=== PATIENT | female | born 1980 | race Hispanic/Latino ===

== ENCOUNTER 2023-09-10 17:51 | Inpatient (IN) | payer OTHER ==
[~2023-09-10] VITALS: Ht 147.3 cm; Wt 74.3 kg
[2023-09-10] VITALS (20 sets, daily range): BP systolic 121–167; BP diastolic 64–114
--- NOTE | 2023-09-10 19:32 | NUR ---
PATIENT AMBULATORY TO ROOM 6, TRIAGE COMPLETED AT BEDSIDE.
[2023-09-10] MEDS ORDERED: ASPIRIN 81 MG/TAB PO ONE (19:55)
[2023-09-10] MEDS ORDERED: AMLODIPINE BESYL5 MG PO (20:00)
[2023-09-10] MEDS ORDERED: amLODIPine BESYLATE 5 MG/TAB PO ONE (20:00)
[2023-09-10 20:08] LABS: BASO% 0.5 % (0-3); EOS% 1.4 % (0-8); IMMATURE GRANULOCYTES 0.3 % (0.0-5.0); LYMPH% 31.1 % (15-41); MEAN CELL VOLUME 49.1 fL CALC (80.0-100.0); MEAN CORPUSCULAR HGB 13.3 pG CALC (26.0-32.0); MEAN CORPUSCULAR HGB CONC 27.1 g/dL CAL (32.0-36.0); NEUT# 3.72 thou/uL (2.00-7.15); NEUT% 57.7 % (42-76); RED BLOOD COUNT 3.38 mill/uL (4.20-5.60); RED CELL DISTRI WIDTH 23.3 % (11.5-15.5)
[2023-09-10 20:12] LABS: HEMATOCRIT 16.6 % (37.0-47.0); HEMOGLOBIN 4.5 g/dl (12.0-16.0)
[2023-09-10] MEDS ORDERED: SODIUM CHLORIDE 0.9% 500 ML IV ONE (20:25)
--- NOTE | 2023-09-10 20:25 | NUR ---
CRITICAL HEMOGLOBIN REPORTED TO DR VO. HEMOGLOBHIN 4.5, HEMATOCRIT 16.6
[2023-09-10 20:34] LABS: ALBUMIN 4.3 g/dL (3.2-5.0); ALKALINE PHOSPHATASE 52 u/l (38-126); ANION GAP 11 (6-22 (CALC)); BILIRUBIN, TOTAL 0.2 mg/dL (0.02-1.3); BUN 14 mg/dL (7-17); BUN/CREATININE RATIO 17 (12-20 (CALC)); CARBON DIOXIDE 24 mmol/l (22-30); CHLORIDE 108 mmol/l (95-108); CREATININE 0.8 mg/dL (0.5-1.0); GFR FOR AFR.AMER. > 60 ML/MIN (>=60 (CALC)); GFR OTHER RACES > 60 ML/MIN (>=60 (CALC)); POTASSIUM 3.8 mmol/l (3.5-5.1); SGOT/AST 19 u/l (14-36); SODIUM 139 mmol/l (137-146); TOTAL PROTEIN 7.6 g/dL (6.3-8.2)
[2023-09-10] MEDS ORDERED: PROTONIX40 M2 PO (20:52)
[2023-09-10] MEDS ORDERED: ACETAMINOPHEN 325 MG/TAB PO PRN (20:55)
[2023-09-10] MEDS ORDERED: MAGNESIUM HYDROXIDE 30 ML UDC PO PRN (20:55)
[2023-09-10 21:20] LABS: URINE BILIRUBIN - DIPSTICK Negative (NEGATIVE); URINE BLOOD DIPSTICK Negative (NEGATIVE); URINE CLARITY Clear; URINE COLOR Yellow; URINE GLUCOSE - DIPSTICK Negative (NEGATIVE); URINE KETONE Negative (NEGATIVE); URINE LEUK ESTERASE Negative (Negative); URINE NITRITE - DIPSTICK Negative (Negative); URINE PROTEIN - DIPSTICK Negative (NEG-TRACE)
--- NOTE | 2023-09-10 21:57 | NUR ---
BLOOD VERIFIED WITH Justice BECKHAM RN
--- NOTE | 2023-09-10 23:45 | NUR ---
BLOOD COMPLETED AT THIS TIME.
[2023-09-11] VITALS (55 sets, daily range): BP systolic 102–162; BP diastolic 54–101
--- NOTE | 2023-09-11 | NUR ---
PATIENT RESTING IN BED, NO APPARENT DISTRES NOTED. CALL LIGHT WITHIN REACH.
[2023-09-11] MEDS ORDERED: IBUPROFEN 600 MG/TAB PO ONE (02:00)
--- NOTE | 2023-09-11 02:00 | NUR ---
PATIENT RESTING IN BED, NO APPARENT DISTRESS NOTED. CALL LIGHT AND BEDSIDE TABLE WITHIN REACH.
[2023-09-11 02:25] LABS: HEMATOCRIT 19.5 % (37.0-47.0); HEMOGLOBIN 5.4 g/dl (12.0-16.0)
--- NOTE | 2023-09-11 02:28 | NUR ---
CRITICAL HEMOGLOBIN AND MYOGLOBIN CALLED TO DR CONTRERAS. PER DR CONTRERAS ADDITIONAL 2 UNITS OF BLOOD TO BE ADDED FOR A TOTAL OF 3 UNITS.
[2023-09-11] MEDS ORDERED: SODIUM CHLORIDE 0.9% 500 ML IV ONE ×2 (03:38→06:31)
--- NOTE | 2023-09-11 03:54 | NUR ---
BLOOD UNIT VERIFIED WITH Dennis MORGAN RN.
--- NOTE | 2023-09-11 06:27 | NUR ---
PATIENT MOVED TO ROOM 14, PATIENT SWITCHED FROM STRETCHER TO BED.
--- NOTE | 2023-09-11 06:43 | NUR ---
BLOOD UNIT VERIFIED WITH Dennis MORGAN RN.
--- NOTE | 2023-09-11 07:15 | NUR ---
REPORT GIVEN TO Brendan JERRY LPN. NOTIFIED OF NEST VSS DUE AT [id number]
--- NOTE | 2023-09-11 08:20 | NUR ---
PT ARRIVED FROM ER VIA BED WITH BLOOD STILL TRANSFUSING, IV SITE IS FREE FROM REDNESS OR EDEMA. NOTED. HR IS REG,PULSES ARE STRONG X4,ABD IS SOFT WITH ACTIVE BS. BREATH SOUNDS ARE CLEAR BILATERALLY. HAD ANTONELLA VELAZ[employer] STUDENT TRANSLATE IN [place].
--- NOTE | 2023-09-11 10:00 | NUR ---
PT HAS BEEN RELAXING IN BED WITH NO DISTRESS NOTED.
[2023-09-11 11:56] LABS: HEMOGLOBIN 8.1 g/dl (12.0-16.0)
--- NOTE | 2023-09-11 12:00 | NUR ---
PT REMAINS RESTING LABS [place] IS HGB OF 8.1. DR ROBBINS IS AWARE
--- NOTE | 2023-09-11 12:46 | NUR ---
STOOL COLLECTED AND SENT TO THE LAB FOR TESTING.
--- NOTE | 2023-09-11 14:00 | NUR ---
PT IS RELAXING IN BED WITH NO DISTRESS NOTED.
[2023-09-11] MEDS ORDERED: DOCUSATE CALCIUM 240 MG/CAP PO SCH (14:30)
[2023-09-11] MEDS ORDERED: Peg 3350-POTASSIUM CHLORIDE-So 4,000 ML BTL PO SCH (14:30)
--- NOTE | 2023-09-11 14:50 | NUR ---
SPOKE WITH DR ROBBINS RE: LABS FOR PT AND STOOL, NEW ORDERS FROM DR AMARAL RE: PREP FOR EGD AND COLONOSCOPY IN THE AM, WAS INFORMED BY NOEL GARAY OF OR INTERPRETING OVER THE PHONE. PT WILL DRINK THE NULYTELY
[2023-09-11] MEDS ORDERED: Pantoprazole Sodium 40 MG VIAL (Protonix) IV SCH (15:00)
--- NOTE | 2023-09-11 16:00 | NUR ---
PT BEGAN DRINKING HER GOLYTELY, AND TOLERATING WELL.
--- NOTE | 2023-09-11 18:02 | NUR ---
PT IS RELAXING IN BED WITH NO DISTRESS NOTED.
[2023-09-11 18:28] LABS: HEMATOCRIT 27.6 % (37.0-47.0); HEMOGLOBIN 8.4 g/dl (12.0-16.0)
--- NOTE | 2023-09-11 19:50 | NUR ---
BEDSIDE REPORT RECEIVED FROM OFF GOING NURSE. PATIENT AWAKE AND AMBULATORY IN ROOM. RESPIRATIONS EVEN AND UNLABORED ON ROOM AIR. DENIES PAIN OR DISCOMFORT. SAFETY MEASURES IN PLACE. CALL LIGHT WITHIN REACH.
--- NOTE | 2023-09-11 20:01 | NUR ---
BEDSIDE REPORT RECEIVED FROM OFF GOING NURSE. PATIENT IS AWAKE IN BED. DENIES PAIN OR DISCOMFORT. RESPIRATIONS EVEN AND UNLABORED ON ROOM AIR. NO SIGNS OF DISTRESS NOTED. SAFETY MEASURES IN PLACE. CALL LIGHT WITHIN REACH.
--- NOTE | 2023-09-11 22:08 | NUR ---
PATIENT AWAKE IN BED. RESPIRATIONS EVEN AND UNLABORED ON ROOM AIR. DENIES PAIN OR DISCOMFORT. NO CONCERNSVOICED AT THIS TIME. CALL LIGHT WITHIN REACH.
--- NOTE | 2023-09-12 02:05 | NUR ---
PATIENT IS ASLEEP IN BED AT THIS TIME. RESPIRATIONS EVEN AND UNLABORED ON ROOM AIR. NO VISIBLE SIGNS OF BLEEDING NOTED. NO SIGNS OF DISTRESS. CALL LIGHT WITHIN REACH.
--- NOTE | 2023-09-12 04:28 | NUR ---
PATIENT ASLEEP IN BED AT THIS TIME. RESPIRATIONS EVEN AND UNLABORED ON ROOM AIR. NO SIGNS OF DISTRESS NOTED. SAFETY MEASURES IN PLACE.
--- NOTE | 2023-09-12 07:00 | NUR ---
pt resting in bed, alert/oriented x3, noticed pt had not drank her zack for her surgery this am. notified or staff and dr. bloom, dr. lopes came to see pt and states that she does not need testing done that she can follow up with him at his office as outpt. dr. zee notified. pt denies any complaints at this time
[2023-09-12 07:20] LABS: BASO% 0.6 % (0-3); EOS% 2.9 % (0-8); HEMATOCRIT 27.7 % (37.0-47.0); HEMOGLOBIN 8.6 g/dl (12.0-16.0); IMMATURE GRANULOCYTES 0.2 % (0.0-5.0); LYMPH% 24.9 % (15-41); MEAN CORPUSCULAR HGB 18.8 pG CALC (26.0-32.0); MONO% 11.5 % (2-13); NEUT# 2.91 thou/uL (2.00-7.15); NEUT% 59.9 % (42-76); PLATELET COUNT 222 thou/uL (130-400); RED BLOOD COUNT 4.57 mill/uL (4.20-5.60)
--- NOTE | 2023-09-12 07:49 | NUR ---
PT ALERT/GUARDS AT BEDSIDE. PT LAYING ON LEFT SIDE, ADVISED THAT WE NEEDED TO TURN HIM ON TO RIGHT SIDE, AND BECAME AGITATED AND SAID NO , NO, SO LEFT HIM ON LEFT SIDE AND WILL CONTINUE TO MONITER.
[2023-09-12 07:57] LABS: ALBUMIN 3.9 g/dL (3.2-5.0); ALKALINE PHOSPHATASE 45 u/l (38-126); ANION GAP 10 (6-22 (CALC)); BUN 5 mg/dL (7-17); BUN/CREATININE RATIO 8 (12-20 (CALC)); CARBON DIOXIDE 23 mmol/l (22-30); CHLORIDE 109 mmol/l (95-108); CREATININE 0.7 mg/dL (0.5-1.0); GFR FOR AFR.AMER. > 60 ML/MIN (>=60 (CALC)); GFR OTHER RACES > 60 ML/MIN (>=60 (CALC)); MAGNESIUM 2.2 mg/dL (1.6-2.3); MEAN CELL VOLUME 60.6 fL CALC (80.0-100.0); POTASSIUM 4.1 mmol/l (3.5-5.1); SGOT/AST 19 u/l (14-36); SODIUM 138 mmol/l (137-146); TOTAL PROTEIN 6.8 g/dL (6.3-8.2)
[2023-09-12 07:59] LABS: BILIRUBIN, TOTAL 0.6 mg/dL (0.02-1.3)
[2023-09-12] MEDS ORDERED: DOCUSATE CALCIUM 240 MG/CAP PO SCH (09:00)
[2023-09-12] MEDS ORDERED: PROTONIX40 M2 PO (10:47)
[2023-09-12] MEDS ORDERED: AMLODIPINE BESYL5 MG PO (10:47)
[2023-09-12] MEDS ORDERED: FERROUS SULF325 M3 PO (10:47)
--- NOTE | 2023-09-12 11:46 | NUR ---
PT FAMILY AT WAITING ROOM ENTRANCE. DISCHARGED AFTER IV REMOVAL, W/C TO LOBBY, PT AMBLATORY TO CAR ON OWN.
== END 2023-09-12 13:30 | disposition home or self-care (01) | DRG 812 ==
LOC: ED 17:51 → ED-I 19:56 → ED 20:57 → ED-I 20:58 → ICU 20:58
PROVIDERS: Emergency Medicine; Student in an Organized Health Care Education/Training Program; ADMIT Internal Medicine; ATTEND Internal Medicine
PROC: 30233N1 Transfusion of Nonautologous Red Blood Cells into Peripheral Vein, Percutaneous Approach (ICD-10-PCS; principal; 2023-09-10)
PROC: 30233N1 Transfusion of Nonautologous Red Blood Cells into Peripheral Vein, Percutaneous Approach (ICD-10-PCS; 2023-09-11)
PROC: 30233N1 Transfusion of Nonautologous Red Blood Cells into Peripheral Vein, Percutaneous Approach (ICD-10-PCS; 2023-09-11)
DX: D50.9 Iron deficiency anemia, unspecified (principal); D25.9 Leiomyoma of uterus, unspecified; I10 Essential (primary) hypertension; T46.1X6A Underdosing of calcium-channel blockers, initial encounter; Z91.128 Patient's intentional underdosing of medication regimen for other reason; Z79.1 Long term (current) use of non-steroidal anti-inflammatories (NSAID); Z20.822 Contact with and (suspected) exposure to COVID-19
CPT/HCPCS: P9016; S0164

== ENCOUNTER 2024-01-23 22:06 | Observation (INO) | payer OTHER ==
[~2024-01-23] VITALS: Ht 147.3 cm; Wt 78.1 kg
[~2024-01-23 22:06] MED LIST: AMLODIPINE BESYL5 MG PO; FERROUS SULF325 M3 PO; PROTONIX40 M2 PO
[2024-01-23] MEDS ORDERED: PROMETHAZINE HCL 25 MG/ML AMP IM ONE (23:30)
[2024-01-23] MEDS ORDERED: DEXAMETHASONE 2 MG/TAB TAB PO ONE (23:30)
[2024-01-23] MEDS ORDERED: BUTALBITAL-APAP-CAFFEINE 50-325-40 TAB PO ONE (23:30)
[2024-01-23] MEDS ORDERED: KETOROLAC TROMETHAMINE 30 MG/ML SDV IV ONE (23:30)
[2024-01-23 23:47] LABS: BASO% 0.4 % (0-3); EOS% 0.9 % (0-8); IMMATURE GRANULOCYTES 0.5 % (0.0-5.0); LYMPH% 25.6 % (15-41); MEAN CORPUSCULAR HGB 14.6 pG CALC (26.0-32.0); MEAN CORPUSCULAR HGB CONC 28.6 g/dL CAL (32.0-36.0); MONO% 7.7 % (2-13); NEUT# 6.11 thou/uL (2.00-7.15); NEUT% 64.9 % (42-76); RED BLOOD COUNT 4.04 mill/uL (4.20-5.60); RED CELL DISTRI WIDTH 24.6 % (11.5-15.5)
[2024-01-23 23:54] LABS: URINE BLOOD DIPSTICK Negative (NEGATIVE); URINE COLOR Yellow; URINE GLUCOSE - DIPSTICK Negative (NEGATIVE); URINE KETONE Negative (NEGATIVE); URINE LEUK ESTERASE Negative (NEGATIVE); URINE NITRITE - DIPSTICK Negative (Negative); URINE PROTEIN - DIPSTICK Negative (NEG-TRACE); URINE SPECIFIC GRAVITY >=1.030
[2024-01-23 23:59] LABS: ALBUMIN 4.1 g/dL (3.2-5.0); CREATININE 0.8 mg/dL (0.5-1.0); TOTAL PROTEIN 7.9 g/dL (6.3-8.2)
[2024-01-24] VITALS (22 sets, daily range): BP systolic 126–163; BP diastolic 61–96
[2024-01-24 00:01] LABS: BILIRUBIN, TOTAL 0.2 mg/dL (0.02-1.3)
[2024-01-24 00:10] LABS: HEMATOCRIT 20.6 % (37.0-47.0); HEMOGLOBIN 5.9 g/dl (12.0-16.0)
[2024-01-24] MEDS ORDERED: FUROSEMIDE 40 MG/4 ML SDV IV ONE (00:20)
[2024-01-24] MEDS ORDERED: SODIUM CHLORIDE 0.9% 1,000 ML IV ONE (00:20)
[2024-01-24] MEDS ORDERED: CALCIUM GLUCONATE 2 GM in SODIUM CHLORIDE 0.9% 100 ML IV ONE (00:20)
[2024-01-24] MEDS ORDERED: IBUPROFEN 800 MG/TAB PO PRN (01:20)
[2024-01-24] MEDS ORDERED: ONDANSETRON 4 MG/TAB ODT PO PRN (01:20)
[2024-01-24] MEDS ORDERED: ALUM & MAG HYDROX-SIMETHICONE 30 ML PO PRN (01:20)
[2024-01-24] MEDS ORDERED: ONDANSETRON HCl 4 MG/2 ML SDV IV PRN ×2 (01:20→10:05)
[2024-01-24] MEDS ORDERED: FAMOTIDINE 10MG/ML 2ML SDV IV PRN (01:20)
[2024-01-24] MEDS ORDERED: MAGNESIUM HYDROXIDE 30 ML UDC PO PRN (01:20)
[2024-01-24] MEDS ORDERED: AMLODIPINE BESYL5 MG PO (04:22)
[2024-01-24] MEDS ORDERED: PANTOPRAZOLE SO40 M1 PO (04:22)
[2024-01-24] MEDS ORDERED: ACETAMINOPHEN 325 MG/TAB PO PRN (10:05)
[2024-01-24] MEDS ORDERED: amLODIPine BESYLATE 5 MG/TAB PO SCH (12:00)
[2024-01-24 14:17] LABS: HEMATOCRIT 36.1 % (37.0-47.0); HEMOGLOBIN 11.2 g/dl (12.0-16.0)
[2024-01-25] VITALS: BP 133/73
[2024-01-25 03:52] VITALS: BP 144/84
[2024-01-25 04:00] VITALS: BP 144/84
[2024-01-25 05:18] LABS: BASO% 0.3 % (0-3); EOS% 0.1 % (0-8); HEMATOCRIT 32.6 % (37.0-47.0); HEMOGLOBIN 10.2 g/dl (12.0-16.0); IMMATURE GRANULOCYTES 0.5 % (0.0-5.0); LYMPH% 14.7 % (15-41); MEAN CORPUSCULAR HGB 19.4 pG CALC (26.0-32.0); MEAN CORPUSCULAR HGB CONC 31.3 g/dL CAL (32.0-36.0); MONO% 7.9 % (2-13); NEUT# 9.43 thou/uL (2.00-7.15); NEUT% 76.5 % (42-76); RED BLOOD COUNT 5.27 mill/uL (4.20-5.60); RED CELL DISTRI WIDTH 34.3 % (11.5-15.5)
[2024-01-25 05:25] LABS: INTERNATIONAL NORMALIZED RATIO 1.1 RATIO (0.7-1.3); MEAN CELL VOLUME 61.9 fL CALC (80.0-100.0)
[2024-01-25 05:27] LABS: PROTHROMBIN TIME 10.7 SECONDS (9.0-12.5)
[2024-01-25 05:28] LABS: ALBUMIN 3.9 g/dL (3.2-5.0); CREATININE 0.8 mg/dL (0.5-1.0); MAGNESIUM 2.1 mg/dL (1.6-2.3); POTASSIUM 4.3 mmol/l (3.5-5.1); TOTAL PROTEIN 7.4 g/dL (6.3-8.2)
[2024-01-25 05:29] LABS: BILIRUBIN, TOTAL 0.5 mg/dL (0.02-1.3)
[2024-01-25 06:54] VITALS: BP 135/83
[2024-01-25 10:39] VITALS: BP 137/74
[2024-01-25] MEDS ORDERED: IRON325 M1 PO (10:47)
[2024-01-25] MEDS ORDERED: IRON DEXTRAN 100 MG/2 ML AMP IV SCH (11:00)
[2024-01-25] MEDS ORDERED: IRON DEXTRAN IV SCH (12:30)
[2024-01-25] MEDS ORDERED: SODIUM CHLORIDE 0.9% IV SCH (12:30)
[2024-01-25 14:30] VITALS: BP 140/72
== END 2024-01-25 18:09 | disposition home or self-care (01) | DRG 812 ==
LOC: ED 22:06 → ED-I 01-24 00:13 → ED 01-24 00:13 → ED-I 01-24 00:19 → MS2 01-24 01:19 → ED 01-24 01:19 → MS2 01-25 18:09
PROVIDERS: Internal Medicine; Nurse Practitioner Family; ADMIT Internal Medicine; ATTEND Internal Medicine
PROC: 30233N1 Transfusion of Nonautologous Red Blood Cells into Peripheral Vein, Percutaneous Approach (ICD-10-PCS; principal; 2024-01-24)
PROC: 30233N1 Transfusion of Nonautologous Red Blood Cells into Peripheral Vein, Percutaneous Approach (ICD-10-PCS; 2024-01-24)
PROC: 30233N1 Transfusion of Nonautologous Red Blood Cells into Peripheral Vein, Percutaneous Approach (ICD-10-PCS; 2024-01-24)
DX: D50.0 Iron deficiency anemia secondary to blood loss (chronic) (principal); I67.82 Cerebral ischemia; N92.0 Excessive and frequent menstruation with regular cycle; I10 Essential (primary) hypertension; D25.9 Leiomyoma of uterus, unspecified; Z91.199 Patient's noncompliance with other medical treatment and regimen due to unspecified reason
CPT/HCPCS: G0378; P9016

== ENCOUNTER → 2024-08-27 | Emergency (ER) | payer SELFPAY ==
[~2024-08-27] VITALS: Ht 147.3 cm; Wt 75.0 kg
[2024-08-27] VITALS (12 sets, daily range): BP systolic 98–152; BP diastolic 55–91
[~2024-08-27] MED LIST changes: +ACETAMINOPHEN 500 MG TAB PO ONE; +BUTALBITAL-APAP-CAFFEINE 50-325-40 TAB PO ONE; +IRON325 M1 PO; +PANTOPRAZOLE SO40 M1 PO; +SODIUM CHLORIDE 0.9% 500 ML IV ONE
[2024-08-27 20:12] LABS: BASO% 0.4 % (0-3); EOS% 0.5 % (0-8); IMMATURE GRANULOCYTES 0.1 % (0.0-5.0); MEAN CORPUSCULAR HGB 13.6 pG CALC (26.0-32.0); MEAN CORPUSCULAR HGB CONC 27.7 g/dL CAL (32.0-36.0); MONO% 7.2 % (2-13); NEUT# 5.31 thou/uL (2.00-7.15); NEUT% 64.8 % (42-76); RED BLOOD COUNT 4.13 mill/uL (4.20-5.60); RED CELL DISTRI WIDTH 22.3 % (11.5-15.5)
[2024-08-27 20:22] LABS: ALBUMIN 4.3 g/dL (3.2-5.0); BILIRUBIN, TOTAL 0.4 mg/dL (0.02-1.3); CREATININE 0.8 mg/dL (0.5-1.0); HEMATOCRIT 20.2 % (37.0-47.0); HEMOGLOBIN 5.6 g/dl (12.0-16.0); MEAN CELL VOLUME 48.9 fL CALC (80.0-100.0); POTASSIUM 4.3 mmol/l (3.5-5.1); TOTAL PROTEIN 7.8 g/dL (6.3-8.2)
== END | disposition short-term general hospital (02) | DRG 812 ==
LOC: ED 17:28
PROVIDERS: Nurse Practitioner
PROC: 30233N1 Transfusion of Nonautologous Red Blood Cells into Peripheral Vein, Percutaneous Approach (ICD-10-PCS; principal; 2024-08-27)
DX: D64.9 Anemia, unspecified (principal); R55 Syncope and collapse; R53.1 Weakness; R42 Dizziness and giddiness; D25.9 Leiomyoma of uterus, unspecified; I10 Essential (primary) hypertension; Z20.822 Contact with and (suspected) exposure to COVID-19; Z91.199 Patient's noncompliance with other medical treatment and regimen due to unspecified reason
CPT/HCPCS: P9016